=== PATIENT | male | born 1990 | race African-American/Black ===

== ENCOUNTER → 2024-05-31 | Outpatient (REF) ==
[2024-06-02 12:32] LABS: QuantiFERON-TB Gold Plus NEGATIVE (NEGATIVE)
[2024-06-02 13:32] LABS: RUBEOLA IgG ANTIBODY > 300.00 AU/mL (>16.49)
== END ==
LOC: M LAB 14:18
PROVIDERS: ATTEND Family Medicine
DX: Z02.1 Encounter for pre-employment examination (principal)